=== PATIENT | female | born 1985 | race Caucasian/White ===

== ENCOUNTER 2019-11-25 09:33 | Outpatient (CLI) | payer SELFPAY ==
[2019-11-27 10:39] LABS: COVID-19 RT-PCR Result NEGATIVE (Negative)
== END 2019-11-25 09:53 ==
PROVIDERS: Visit Provider Naturopath
DX: R50.9 Fever, unspecified (principal); Z11.59 Encounter for screening for other viral diseases
CPT/HCPCS: U0003